=== PATIENT | female | born 1985 | race Caucasian/White ===

== ENCOUNTER → 2017-09-13 10:34 | Outpatient (CLI) | payer OTHER, SELFPAY ==
[2017-09-13 12:00] LABS: Internal QC Validated? YES +Cl - CLEAR BKGD; Pregnancy, Urine Negative Negative
== END ==
PROVIDERS: Family Provider Family Medicine; PCP Family Medicine; Visit Provider Physician Assistant
DX: L70.0 Acne vulgaris (principal); Z79.899 Other long term (current) drug therapy
CPT/HCPCS: 81025

== ENCOUNTER → 2017-10-19 08:47 | Outpatient (CLI) | payer OTHER, SELFPAY ==
[2017-10-19 10:20] LABS: Internal QC Validated? YES +Cl - CLEAR BKGD; Pregnancy, Urine Negative Negative
== END ==
PROVIDERS: Family Provider Family Medicine; PCP Family Medicine; Visit Provider Dermatology
DX: L70.0 Acne vulgaris (principal); Z79.899 Other long term (current) drug therapy
CPT/HCPCS: 81025

== ENCOUNTER → 2017-10-27 16:30 | Outpatient (CLI) | payer OTHER, SELFPAY ==
[2017-11-01 09:21] LABS: HPV Reflexed? NOT INDICATED
== END ==
PROVIDERS: Visit Provider Obstetrics & Gynecology
DX: Z01.419 Encounter for gynecological examination (general) (routine) without abnormal findings (principal)
CPT/HCPCS: 88175; G0145

== ENCOUNTER → 2017-12-09 09:57 | Outpatient (CLI) | payer OTHER, SELFPAY ==
[2017-12-09 12:02] LABS: Absolute Lymphocyte Count 2.61 X10^3/ul (0.83-4.51); Absolute Neutrophil Count 3.9 X10^3/uL (2.0-7.7); Basophil# 0.03 X10^3/uL; Basophil% 0.4 % (0-1); Eosinophils% 1.3 % (0-5); Hematocrit 43.1 % (37-47); Hemoglobin 14.7 g/dl (12.0-15.0); Lymphocyte # 2.61 X10^3/ul (4.0); Mean Corp Hgb Conc 34.1 g/gl (32-36); Mean Corpuscular Hgb 31.5 pg (27.0-32.0); Mean Corpuscular Volume 92.3 fL (81-99); Mean Platelet Vol. 10.3 fl (6.2-12.0); Monocyte# 0.84 X10^3/uL; Monocyte% 11.3 % (0-10); Neutrophil # 3.85 X10^3/uL (2.7-7.7); Neutrophil % 51.6 % (47-70); Platelet Count 346 K/mm3 (150-450); RBC Distribution Width CV 12.4 % (11.6-14.6); RBC Distribution Width SD 41.8 fl (35.1-43.9); Red Blood Count 4.67 M/mm3 (4.2-5.4); White Blood Count 7.5 K/mm3 (4.4-11.0)
[2017-12-09 12:07] LABS: POSITIVE COUNT NO; POSITIVE DIFFERENTIAL NO; POSITIVE MORPHOLOGY NO
[2017-12-09 12:34] LABS: AST(SGOT) 25 U/L (15-37); Alanine Aminotransfer ALT/SGPT 38 U/L (13-56); Albumin, Serum 4.1 g/dL (3.2-5.0); Alkaline Phosphatase 91 U/L (45-117); Bilirubin, Direct 0.08 mg/dL (0.00-0.30); Cholesterol 205 mg/dL (200); Globulin 3.9 g/dL (2.2-4.2); High Density Lipoprotein 48 mg/dL; Triglycerides 158 mg/dL; Very Low Density Lipoprotein 32 mg/dL (5-40)
[2017-12-09 12:46] LABS: Pregnancy, Serum, hCG Quali. NEGATIVE Negative (0-9 Nonpreg)
== END ==
PROVIDERS: Family Provider Family Medicine; PCP Family Medicine
DX: L70.0 Acne vulgaris (principal); Z79.899 Other long term (current) drug therapy
CPT/HCPCS: 36415; 80061; 80076; 84703; 85025

== ENCOUNTER → 2018-01-13 11:12 | Outpatient (CLI) | payer OTHER, SELFPAY ==
[2018-01-13 12:28] LABS: Internal QC Validated? YES +Cl - CLEAR BKGD; Pregnancy, Urine Negative Negative
[2018-01-13 13:02] LABS: Vitamin D,25 Hydroxy 18.1 ng/mL (29.95-100.01)
[2018-01-13 13:04] LABS: Thyroid Stim Hormone (TSH) 1.77 uIU/mL (0.358-3.74)
== END ==
PROVIDERS: Family Provider Family Medicine; PCP Family Medicine
DX: L70.0 Acne vulgaris (principal); E55.9 Vitamin D deficiency, unspecified; F41.1 Generalized anxiety disorder; Z79.899 Other long term (current) drug therapy
CPT/HCPCS: 36415; 81025; 82306; 84443

== ENCOUNTER → 2018-05-10 10:59 | Outpatient (CLI) | payer OTHER, SELFPAY ==
[2018-05-10 14:01] LABS: Chlamydia Trachomatis by PCR Negative (Negative); Neisserai gonorrhoeae by PCR Negative (Negative); Probe Check PASS; Sample Adequacy Control PASS; Specimen Processing Control PASS
== END ==
PROVIDERS: Family Provider Family Medicine; PCP Family Medicine; Visit Provider Obstetrics & Gynecology
DX: Z11.3 Encounter for screening for infections with a predominantly sexual mode of transmission (principal)
CPT/HCPCS: 87491; 87591

== ENCOUNTER → 2019-03-13 15:22 | Outpatient (CLI) | payer OTHER, SELFPAY ==
[2019-03-18 13:37] LABS: HPV Reflexed? NOT INDICATED
== END ==
PROVIDERS: Visit Provider Obstetrics & Gynecology
DX: Z12.4 Encounter for screening for malignant neoplasm of cervix (principal)
CPT/HCPCS: 88175; G0145

== ENCOUNTER → 2019-04-02 12:49 | Outpatient (CLI) | payer OTHER, SELFPAY | PROVIDERS: Referring Provider Nurse Practitioner Family; Visit Provider Nurse Practitioner Family | DX: R30.0 Dysuria (principal) | CPT/HCPCS: 87077; 87086; 87088 ==

== ENCOUNTER → 2019-04-25 10:03 | Outpatient (CLI) | payer OTHER, SELFPAY ==
[2019-04-25 10:35] LABS: Hematocrit 45.7 % (37-47); Hemoglobin 15.4 g/dL (12.0-15.0); Mean Corp Hgb Conc 33.7 g/dL (32-36); Mean Corpuscular Hgb 31.4 pg (27.0-32.0); Mean Corpuscular Volume 93.1 fL (81-99); Mean Platelet Vol. 9.6 fl (6.2-12.0); Platelet Count 360 K/mm3 (150-450); RBC Distribution Width CV 11.9 % (11.6-14.6); RBC Distribution Width SD 41.1 fl (35.1-43.9); Red Blood Count 4.91 M/mm3 (4.2-5.4); White Blood Count 7.4 K/mm3 (4.4-11.0)
[2019-04-25 10:37] LABS: Color, Urine Yellow (Yellow); Glucose, Dipstick Normal (Normal); Ketone-Dipstick 5 mg/dl (Negative); Leukocyte Esterase-Dipstick 25 /ul (Negative); Nitrite-Dipstick Negative (Negative); Occult Blood-Urine 25 /ul (Negative); Protein-Dipstick 15 mg/dl (Negative); Specific Gravity, Urine 1.015 (1.002-1.030); Urine Bilirubin Dipstick Negative (Negative); Urine Clarity Cloudy (Clear); Urine Urobilinogen Normal (Normal)
[2019-04-25 11:50] LABS: HIV - WCH Non-Reactive (Nonreactive); Hepatitis B Surface Antigen Non-Reactive (Nonreactive); Hepatitis C Antibody Non-Reactive (Nonreactive)
[2019-04-25 12:15] LABS: Chlamydia Trachomatis by PCR Negative (Negative); Neisserai gonorrhoeae by PCR Negative (Negative); Probe Check PASS; Sample Adequacy Control PASS; Specimen Processing Control PASS; Trichomonas Vag DNA by PCR Negative (Negative)
[2019-04-26 02:20] LABS: Rapid Plasmin Reagin (RPR) NONREACTIVE (NONREACTIVE)
== END ==
PROVIDERS: Visit Provider Advanced Practice Midwife
DX: Z11.3 Encounter for screening for infections with a predominantly sexual mode of transmission (principal); N39.0 Urinary tract infection, site not specified
CPT/HCPCS: 36415; 81002; 85027; 86592; 86703; 86803; 87086; 87088; 87340; 87491; 87591; 87661

== ENCOUNTER → 2019-06-21 12:32 | Outpatient (CLI) | payer OTHER, SELFPAY ==
--- NOTE | 2019-06-21 12:36 | RAD_ITS ---
STUDY: X-RAY - ABDOMEN/PELVIS REASON FOR EXAM: Female, 34 years old. irritable bowel syndrome TECHNIQUE: 3 AP supine and upright views of the abdomen and pelvis. COMPARISON: None. FINDINGS: Normal visualized lung bases. There is an unremarkable bowel gas pattern. There is no demonstrated free abdominal air. The colon is filled with stool along its entire length. An intrauterine device is seen. Normal soft tissue structures. Normal visualized osseous structures. RAD/Abd Inc Decub and/or Erect IMPRESSION: Stool-filled colon Electronically Signed: Davin Diehl MD at 19:08 EST , Service support ,
[2019-06-21 14:21] LABS: Cholesterol 199 mg/dL (200); High Density Lipoprotein 46 mg/dL; Triglycerides 99 mg/dL; Very Low Density Lipoprotein 20 mg/dL (5-40)
== END ==
PROVIDERS: Family Provider Family Medicine; PCP Family Medicine; Referring Provider Family Medicine; Visit Provider Family Medicine
DX: K58.9 Irritable bowel syndrome, unspecified (principal); E78.5 Hyperlipidemia, unspecified
CPT/HCPCS: 36415; 74019; 80061

== ENCOUNTER → 2020-01-09 11:09 | Outpatient (CLI) | payer OTHER, SELFPAY ==
[2020-01-09 13:58] LABS: HIV - WCH Non-Reactive (Nonreactive)
[2020-01-09 14:13] LABS: Probe Check PASS; Sample Adequacy Control PASS; Specimen Processing Control PASS; Trichomonas Vag DNA by PCR Negative (Negative)
[2020-01-09 14:26] LABS: Chlamydia Trachomatis by PCR Negative (Negative); Neisserai gonorrhoeae by PCR Negative (Negative); Probe Check PASS; Sample Adequacy Control PASS; Specimen Processing Control PASS
== END ==
PROVIDERS: PCP Family Medicine; Visit Provider Obstetrics & Gynecology
DX: Z11.3 Encounter for screening for infections with a predominantly sexual mode of transmission (principal)
CPT/HCPCS: 36415; 86703; 87086; 87088; 87491; 87591; 87661

== ENCOUNTER → 2020-03-18 11:38 | Outpatient (CLI) | payer BC, SELFPAY | PROVIDERS: PCP Family Medicine; Visit Provider Obstetrics & Gynecology | DX: N39.0 Urinary tract infection, site not specified (principal) | CPT/HCPCS: 87086; 87088 ==

== ENCOUNTER 2020-07-10 11:47 | Outpatient (RCR) | payer BC, SELFPAY | END 2020-07-10 23:59 | LOC: IMMUN 11:47 | PROVIDERS: PCP Family Medicine; Visit Provider Family Medicine | DX: Z23 Encounter for immunization (principal) | CPT/HCPCS: 0011A; 0012A; 91301 ==

== ENCOUNTER → 2020-08-18 16:03 | Outpatient (CLI) | payer BC, SELFPAY ==
[2020-08-19 09:43] LABS: HIV - WCH Non-Reactive (Nonreactive); Hepatitis B Surface Antigen Non-Reactive (Nonreactive); Hepatitis C Antibody Non-Reactive (Nonreactive); Syphilis Antibodies Non-reactive
== END ==
PROVIDERS: PCP Family Medicine; Visit Provider Obstetrics & Gynecology
DX: Z11.3 Encounter for screening for infections with a predominantly sexual mode of transmission (principal)
CPT/HCPCS: 36415; 86703; 86803; 87340

== ENCOUNTER → 2021-06-15 17:21 | Outpatient (CLI) | payer BC, SELFPAY | PROVIDERS: PCP Family Medicine; Visit Provider Family Medicine | DX: U07.1 COVID-19 (principal) | CPT/HCPCS: 87635; U0005; U0003 ==

== ENCOUNTER → 2021-06-18 15:29 | Outpatient (CLI) | payer BC, SELFPAY | PROVIDERS: PCP Family Medicine; Visit Provider Physician Assistant Medical | DX: U07.1 COVID-19 (principal) | CPT/HCPCS: 87635; U0003; U0005 ==

== ENCOUNTER 2021-07-22 13:46 | Outpatient (CLI) | payer BC, SELFPAY ==
[2021-07-29 13:14] LABS: HPV APTIMA, High Risk Negative (Negative)
== END 2021-07-22 23:59 | disposition short-term general hospital (02) ==
LOC: LABSPEC 13:49
PROVIDERS: PCP Family Medicine; Visit Provider Obstetrics & Gynecology
DX: Z12.4 Encounter for screening for malignant neoplasm of cervix (principal)
CPT/HCPCS: 87624; 88175; G0145

== ENCOUNTER 2021-09-17 12:10 | Outpatient (CLI) | payer BC, SELFPAY | END 2021-09-17 23:59 | disposition home or self-care (01) | PROVIDERS: PCP Family Medicine; Visit Provider Obstetrics & Gynecology | DX: R30.0 Dysuria (principal) | CPT/HCPCS: 87086 ==

== ENCOUNTER → 2021-12-30 | Outpatient (CLI) | payer BC, SELFPAY ==
[2021-12-30 15:23] LABS: Absolute Neutrophil Count 2.8 X10^3/uL (2.0-7.7); Basophil# 0.04 X10^3/uL; Basophil% 0.6 % (0-1); Eosinophil# 0.08 X10^3/uL; Eosinophils% 1.3 % (0-5); Hematocrit 42.3 % (37-47); Hemoglobin 14.1 g/dL (12.0-15.0); Lymphocyte % 43.5 % (19-41); Mean Corp Hgb Conc 33.3 g/dL (32-36); Mean Corpuscular Hgb 29.9 pg (27.0-32.0); Mean Corpuscular Volume 89.8 fL (81-99); Mean Platelet Vol. 9.9 fl (6.2-12.0); Monocyte% 9.7 % (0-10); NRBC Flagged by Analyzer 0 % (0-5); Neutrophil # 2.75 X10^3/uL (2.7-7.7); Neutrophil % 44.4 % (47-70); Platelet Count 395 K/mm3 (150-450); RBC Distribution Width CV 12.1 % (11.6-14.6); RBC Distribution Width SD 40.2 fl (35.1-43.9); Red Blood Count 4.71 M/mm3 (4.2-5.4); White Blood Count 6.2 K/mm3 (4.4-11.0)
[2021-12-30 15:59] LABS: ALB/GLOB Ratio 1.1 RATIO (0.9-2.4); AST(SGOT) 22 U/L (15-37); Alanine Aminotransfer ALT/SGPT 23 U/L (13-56); Alkaline Phosphatase 66 U/L (45-117); Anion Gap 5 (5-15); BUN 10 mg/dL (7-18); BUN/Creat Ratio 10.8 RATIO (10-20); Calcium,Total 9.1 mg/dL (8.5-10.1); Chloride 106 mmol/L (98-107); Cholesterol 232 mg/dL (200); Creatinine, Serum 0.92 mg/dL (0.55-1.02); EST Glomerular Filtration Rate 72 mL/min (>60); Est Glom Filt Rate - Afr Amer 88 mL/min (>60); Globulin 3.6 g/dL (2.2-4.2); Glucose 87 mg/dL (74-106); High Density Lipoprotein 49 mg/dL; Potassium 3.7 mmol/L (3.5-5.1); Protein, Total 7.6 g/dL (6.4-8.2); Sodium Level 137 mmol/L (136-145); Thyroid Stim Hormone (TSH) 1.79 uIU/mL (0.358-3.74); Triglycerides 113 mg/dL; Very Low Density Lipoprotein 23 mg/dL (5-40)
[2021-12-30 16:00] LABS: Vitamin D,25 Hydroxy 45.2 ng/mL
== END | disposition home or self-care (01) ==
PROVIDERS: PCP Family Medicine; Referring Provider Family Medicine; Visit Provider Family Medicine
DX: K58.9 Irritable bowel syndrome, unspecified (principal); F32.A Depression, unspecified; Z13.220 Encounter for screening for lipoid disorders
CPT/HCPCS: 36415; 80053; 80061; 82306; 84443; 85025

== ENCOUNTER → 2022-01-11 | Outpatient (CLI) | payer BC, SELFPAY ==
[2022-01-11 14:41] LABS: hCG Titer Quant., Serum 37 mIU/mL (1-3)
[2022-01-13 22:06] LABS: Chlamydia By Nucleic Acid AMP Negative (Negative)
[2022-01-14 12:47] LABS: Gonococcus By Nucleic Acid AMP Negative (Negative)
== END | disposition home or self-care (01) ==
LOC: WOBLAB 14:00
PROVIDERS: PCP Family Medicine; Visit Provider Obstetrics & Gynecology
DX: Z34.81 Encounter for supervision of other normal pregnancy, first trimester (principal)
CPT/HCPCS: 36415; 84702; 87491; 87591

== ENCOUNTER → 2022-01-14 | Outpatient (CLI) | payer BC, SELFPAY ==
[2022-01-14 11:43] LABS: hCG Titer Quant., Serum 12 mIU/mL (1-3)
== END | disposition home or self-care (01) ==
LOC: WOBLAB 08:41
PROVIDERS: PCP Family Medicine; Visit Provider Obstetrics & Gynecology
DX: N91.2 Amenorrhea, unspecified (principal)
CPT/HCPCS: 36415; 84702

== ENCOUNTER → 2022-05-10 | Outpatient (CLI) | payer BC, SELFPAY ==
[2022-05-10 15:56] LABS: Absolute Neutrophil Count 6.9 X10^3/uL (2.0-7.7); Basophil# 0.06 X10^3/uL; Basophil% 0.5 % (0-1); Eosinophil# 0.13 X10^3/uL; Eosinophils% 1.1 % (0-5); Hemoglobin 13.3 g/dL (12.0-15.0); Lymphocyte % 29.4 % (19-41); Mean Corp Hgb Conc 33.3 g/dL (32-36); Mean Corpuscular Hgb 30.4 pg (27.0-32.0); Mean Corpuscular Volume 91.5 fL (81-99); Mean Platelet Vol. 9.9 fl (6.2-12.0); Monocyte# 1.05 X10^3/uL; Monocyte% 9.1 % (0-10); NRBC Flagged by Analyzer 0 % (0-5); Neutrophil # 6.87 X10^3/uL (2.7-7.7); Neutrophil % 59.4 % (47-70); Platelet Count 372 K/mm3 (150-450); RBC Distribution Width CV 12.2 % (11.6-14.6); RBC Distribution Width SD 40.6 fl (35.1-43.9); Red Blood Count 4.37 M/mm3 (4.2-5.4); White Blood Count 11.6 K/mm3 (4.4-11.0)
[2022-05-10 17:12] LABS: HIV - WCH Non-Reactive (Nonreactive); Hepatitis B Surface Antigen Non-Reactive (Nonreactive); Hepatitis C Antibody Non-Reactive (Nonreactive); Rubella IgG Reactive (Nonreactive); Syphilis Antibodies Non-reactive
[2022-05-12 14:58] LABS: V-Zoster IgG (Immunity) 1599 index (Immune >165)
[2022-05-13 00:07] LABS: Chlamydia By Nucleic Acid AMP Negative (Negative)
[2022-05-13 07:38] LABS: Gonococcus By Nucleic Acid AMP Negative (Negative)
== END | disposition home or self-care (01) ==
LOC: WOBLAB 15:22
PROVIDERS: PCP Family Medicine; Visit Provider Obstetrics & Gynecology
DX: Z34.81 Encounter for supervision of other normal pregnancy, first trimester (principal); Z11.3 Encounter for screening for infections with a predominantly sexual mode of transmission
CPT/HCPCS: 36415; 85025; 86703; 86762; 86780; 86787; 86803; 87086; 87340; 87491; 87591

== ENCOUNTER → 2022-06-09 | Outpatient (CLI) | payer BC, SELFPAY ==
[2022-06-09 17:30] LABS: Glucose Challenge Gest 1H 50g 99 mg/dL (70-140)
== END | disposition home or self-care (01) ==
PROVIDERS: PCP Family Medicine; Visit Provider Obstetrics & Gynecology
DX: Z34.82 Encounter for supervision of other normal pregnancy, second trimester (principal)
CPT/HCPCS: 36415; 82950

== ENCOUNTER → 2022-07-30 | Outpatient (CLI) | payer BC, SELFPAY ==
--- NOTE | 2022-07-30 15:18 | US_ITS ---
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 FINDINGS: There is a single intrauterine fetus. The fetus is in a cephalic and then breech presentation. There is demonstrated cardiac activity with a heart rate of 143 bpm. There is a normal amniotic fluid volume. The largest amniotic fluid pocket measures 6.9 cm. The placenta is posterior and not low-lying. There are Grade 0 placental changes. The cervix measures 4.9 cm in length. The adnexal regions are not visualized. BPD: 4.4 cm = 19 weeks, 2 day(s) HC: 16.8 cm = 19 weeks, 3 day(s) AC: 14.7 cm = 20 weeks, 0 day(s) FL: 3.2cm = 19 weeks, 5 day(s) EGA by ultrasound: 19 weeks 3 day(s) DOUGLAS by ultrasound: 12/21/2022 Estimated weight: 316 grams Weight percentile: 23% ANATOMY: Gender: Female Cranium: Normal lateral ventricles. Normal choroid plexus. Normal cerebellum. Normal cisterna magna. Normal face, nose and lips. Chest: Normal 4-chamber heart. Abdomen/Pelvis: Normal diaphragm. Normal stomach. Normal abdominal wall. Normal cord insertion. Normal 3 vessel cord. Normal kidneys. Normal bladder. Spine: Normal cervical spine. Normal thoracic spine. Normal lumbar spine. Normal sacrum. Extremities: Normal bilateral upper extremities. Normal bilateral lower extremities. US/OB Anatomy Scan IMPRESSION: Living intrauterine with estimated gestational age of 19 weeks and 3 days. No obvious anomalies. Electronically Signed: Davis Humphrey MD at 19:52 EST ,
== END | disposition home or self-care (01) ==
LOC: US 15:16
PROVIDERS: PCP Family Medicine; Referring Provider Student in an Organized Health Care Education/Training Program; Visit Provider Student in an Organized Health Care Education/Training Program
DX: Z34.82 Encounter for supervision of other normal pregnancy, second trimester (principal)
CPT/HCPCS: 76805

== ENCOUNTER → 2022-10-01 | Outpatient (CLI) | payer BC, SELFPAY ==
[2022-10-01 16:35] LABS: Hematocrit 36.5 % (37-47); Hemoglobin 12.6 g/dL (12.0-15.0); Mean Corp Hgb Conc 34.5 g/dL (32-36); Mean Corpuscular Hgb 31.6 pg (27.0-32.0); Mean Corpuscular Volume 91.5 fL (81-99); Mean Platelet Vol. 10.1 fl (6.2-12.0); Platelet Count 291 K/mm3 (150-450); RBC Distribution Width CV 13.3 % (11.6-14.6); RBC Distribution Width SD 43.9 fl (35.1-43.9); Red Blood Count 3.99 M/mm3 (4.2-5.4); White Blood Count 9.8 K/mm3 (4.4-11.0)
[2022-10-01 16:56] LABS: Glucose Challenge Gest 1H 50g 113 mg/dL (70-140)
[2022-10-01 17:22] LABS: Syphilis Antibodies Non-reactive
== END | disposition home or self-care (01) ==
LOC: WOBLAB 16:19
PROVIDERS: PCP Family Medicine; Visit Provider Obstetrics & Gynecology
DX: Z34.83 Encounter for supervision of other normal pregnancy, third trimester (principal)
CPT/HCPCS: 36415; 82950; 85027; 86780

== ENCOUNTER → 2022-11-18 | Outpatient (CLI) | payer BC, SELFPAY ==
[2022-11-18 18:20] LABS: Absolute Lymphocyte Count 2.71 X10^3/uL (0.83-4.51); Absolute Neutrophil Count 6.4 X10^3/uL (2.0-7.7); Basophil# 0.04 X10^3/uL; Basophil% 0.4 % (0-1); Eosinophil# 0.06 X10^3/uL; Eosinophils% 0.6 % (0-5); Hematocrit 39.7 % (37-47); Lymphocyte # 2.71 X10^3/ul (0.83-4.51); Lymphocyte % 26.8 % (19-41); Mean Corp Hgb Conc 32.7 g/dL (32-36); Mean Corpuscular Hgb 30.5 pg (27.0-32.0); Mean Corpuscular Volume 93.2 fL (81-99); Mean Platelet Vol. 10.8 fl (6.2-12.0); Monocyte# 0.82 X10^3/uL; Monocyte% 8.1 % (0-10); NRBC Flagged by Analyzer 0 % (0-5); Neutrophil # 6.38 X10^3/uL (2.7-7.7); Neutrophil % 63.2 % (47-70); Platelet Count 343 K/mm3 (150-450); RBC Distribution Width CV 13.2 % (11.6-14.6); RBC Distribution Width SD 44.7 fl (35.1-43.9); Red Blood Count 4.26 M/mm3 (4.2-5.4); White Blood Count 10.1 K/mm3 (4.4-11.0)
[2022-11-18 19:05] LABS: Protein, Urine (Random) 12.6 mg/dL (<11.9); Protein:Creat Ratio 205 mg/g CRE (0-200)
[2022-11-18 19:25] LABS: ALB/GLOB Ratio 0.6 RATIO (0.9-2.4); AST(SGOT) 15 U/L (15-37); Alanine Aminotransfer ALT/SGPT 15 U/L (13-56); Albumin, Serum 2.6 g/dL (3.2-5.0); Alkaline Phosphatase 113 U/L (45-117); Anion Gap 7 (5-15); BUN 7 mg/dL (7-18); BUN/Creat Ratio 11.1 RATIO (10-20); Calcium,Total 9.5 mg/dL (8.5-10.1); Chloride 104 mmol/L (98-107); Creatinine, Serum 0.63 mg/dL (0.55-1.02); EST Glomerular Filtration Rate 111 mL/min (>60); Est Glom Filt Rate - Afr Amer 135 mL/min (>60); Globulin 4.3 g/dL (2.2-4.2); Glucose 77 mg/dL (74-106); LDH 173 U/L (84-246); Potassium 3.8 mmol/L (3.5-5.1); Protein, Total 6.9 g/dL (6.4-8.2); Sodium Level 137 mmol/L (136-145)
== END | disposition home or self-care (01) ==
LOC: WOBLAB 16:49
PROVIDERS: PCP Family Medicine; Visit Provider Obstetrics & Gynecology
DX: Z34.83 Encounter for supervision of other normal pregnancy, third trimester (principal); Z36.85 Encounter for antenatal screening for Streptococcus B
CPT/HCPCS: 36415; 80053; 82570; 83615; 84156; 85025; 87081; 87086

== ENCOUNTER 2022-12-14 20:30 | Inpatient (IN) | payer BC, SELFPAY ==
[2022-12-14] VITALS (40 sets, daily range): BP systolic 77–143; BP diastolic 45–88; PULSE 65–148; TEMP 36.4–36.6; O2SAT 97–100; BMI 33.7
[2022-12-14 20:27] LABS: ROM Internal Control Test YES-OK TO RESULT pt. (Internal QC); ROM Patient Test POSITIVE (Negative); Record Kit Lot#, ROM+ K1374
[2022-12-14] MEDS: Lactated Ringers 1,000 ML 50 ML IV (21:15)
[2022-12-14 21:42] LABS: Absolute Lymphocyte Count 3.06 X10^3/uL (0.83-4.51); Absolute Neutrophil Count 6.3 X10^3/uL (2.0-7.7); Basophil# 0.05 X10^3/uL; Basophil% 0.5 % (0-1); Eosinophil# 0.07 X10^3/uL; Eosinophils% 0.7 % (0-5); Hematocrit 41.6 % (37-47); Lymphocyte # 3.06 X10^3/ul (0.83-4.51); Lymphocyte % 29.5 % (19-41); Mean Corp Hgb Conc 33.7 g/dL (32-36); Mean Corpuscular Hgb 30.6 pg (27.0-32.0); Mean Platelet Vol. 10.8 fl (6.2-12.0); Monocyte# 0.85 X10^3/uL; Monocyte% 8.2 % (0-10); NRBC Flagged by Analyzer 0 % (0-5); Neutrophil # 6.26 X10^3/uL (2.7-7.7); Neutrophil % 60.1 % (47-70); Platelet Count 302 K/mm3 (150-450); RBC Distribution Width CV 13.5 % (11.6-14.6); RBC Distribution Width SD 44.3 fl (35.1-43.9); Red Blood Count 4.57 M/mm3 (4.2-5.4); White Blood Count 10.4 K/mm3 (4.4-11.0)
[2022-12-14] MEDS: LACTATED RINGERS 500 ML 999 ML IV ×2 (22:03→22:52)
[2022-12-14 22:20] LABS: Syphilis Antibodies Non-reactive
[2022-12-14] MEDS: fentaNYL-bupivacaine (epidural) 100 ML BAG EPIDURAL (22:46)
[2022-12-14] MEDS: ePHEDrine Sulfate 50 MG/ML Ampul 10 MG IV (22:56)
[2022-12-14 23:57] LABS: Amphetamine Urine VISTA NEGATIVE (<1000 ng/mL); Barbiturate Urine VISTA NEGATIVE (< 200 ng/mL); Benzodiazepine Urine VISTA NEGATIVE (< 200 ng/mL); Cocaine Urine VISTA NEGATIVE (< 300 ng/mL); Ecstacy Urine VISTA NEGATIVE (< 500 ng/mL); Methadone Urine VISTA NEGATIVE (< 300 ng/mL); PCP Urine VISTA NEGATIVE (< 25 ng/mL); THC Urine VISTA NEGATIVE (< 50 ng/mL); Vista UDS pH Range 6
[2022-12-15] VITALS (77 sets, daily range): BP systolic 103–161; BP diastolic 57–130; PULSE 73–137; RESP 16–18; TEMP 36.1–36.4; O2SAT 86–100
[2022-12-15] MEDS: LACTATED RINGERS 500 ML 999 ML IV (00:45)
[2022-12-15] MEDS: Cefazolin 2 GM in 0.9% Normal Saline 100 ML IV ×3 (01:08→17:39)
--- NOTE | 2022-12-15 01:51 | PCM.HP.BLA ---
History and Physical Date of Admission: 12/14/22 HPI: 37-year-old admitted at 39/6w, DOUGLAS 12/15/2022 by LMP, admitted for rupture of membranes at 1700 on December 14. Denies vaginal bleeding. Denied regular contractions. Reported movement. Denies headache or vision changes, chest pain or shortness of breath, nausea or vomiting, diarrhea constipation, fevers or chills. complicated by: Factor V heterozygous, advanced maternal age, depression and anxiety. 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 Anxiety and depression 2. Factor V heterozygous 3. class I obesity 4. IBS Surgical History: 1. Tonsillectomy 2. WTE Medications: 1. PNV 2. Vitamin D 3. Claritin 4. Lamictal 5. Celexa 6. ASA 81 mg Allergies: latex Social: former tobacco use, denies alcohol or drugs ROS: neg otherwise stated above Physical exam: vital stable General: Comfortable HEENT: Normal cephalic/atraumatic Cardiorespiratory: No increased effort Abdomen: Soft, nontender, gravid Extremities minimal edema Neurologic: No focal deficits Musculoskeletal: Moves all extremities equally CE on admission 1.5 cm, ROM pos FHR:125/mod louis/+accel/no decel [place]: quiet On admission Assessment/Plan: 37-year-old admitted at 39/6w, DOUGLAS 12/15/2022 by LMP, admitted for rupture of membranes. complicated by: Factor V heterozygous, advanced maternal age, depression and anxiety, class I obesity. ?Admit to labor and delivery. ? GBS negative ? Plan to recheck cervix in 2 hours, if no cervical change would start Pitocin ? Factor V heterozygous: Lovenox 40 mg daily for 6 weeks on delivery ? Advanced maternal age ? Class I obesity ? Anxiety and depression: Continue Celexa and lamictal
--- NOTE | 2022-12-15 01:53 | OP.PCM_ITS ---
Maternal Data Information Final DOUGLAS: 12/15/22 Details Operative Information Date of Procedure: 12/15/22 Pre-Operative Diagnosis: Nonreassuring heart tones Post-Operative Diagnosis: Nonreassuring heart tones Indications Narrative: This is a 37-year-old G3, P1 at 40/0 weeks, admitted for rupture of membranes. Patient had a prolonged heart rate deceleration of 18 minutes with a libra of 60s, with intermittent recovery. Provider was called at 12:52 AM and arrived at 12:59 AM. Had ordered terbutaline to be given x1, patient did not receive. Patient received IVF bolus, oxygen, position changes in attempt to resolve deceleration. Patient's cervix was reexamined in the OR, noting to again be 3 cm dilated. Discussed findings and heart rate tracing with the patient and her . Patient was verbally consented for section. All risk, benefits, alternative discussed patient. Risk of but are not limited to: Risk of bleeding twin transfusion, infection, injury to surrounding tissue including bowel/bladder potentially requiring prolonged Wang catheter use, VTE, ICU admission. Patient aware and verbally consented. Classification: LILIYA Procedure Type: low transverse Type of Anesthesia: Epidural Estimated Blood Loss: 700cc Fluids Replaced: 1000cc Findings Description of Procedure: Procedure: Patient was taken to the operating room and epidural was dosed. Decision for emergent section was made, patient was verbally consented as above. Due to the emergent nature of the surgery, RN scrubbed as pharmacy innovation assistant pending BILL ADJUSTER arrival. Pfannenstiel skin incision was made with scalpel and carried down through subcutaneous tissue. Fascia nicked on either side of midline and extended bluntly. Rectus muscle at midline bluntly and peritoneum entered bluntly. Bladder blade placed. Low transverse uterine incision made with scalpel and extended bluntly. Hand placed into the uterine cavity and head elevated to the level of the hysterotomy. Bladder blade removed. With the assistance of gentle fundal pressure head delivered followed by body. No nuchal cord. Cord clamped and cut. Baby to nursing. Spontaneous delivery of placenta. Uterus exteriorized and cleared of all clots. Small uterine extension noted inferiorly, reapproximated with running stitch. Imbricating [id number] suture was placed for hemostasis along the extension. Hysterotomy closed with running stitch followed by second vertical imbricating stitch. Uterus replaced. Hemostasis confirmed along the hysterotomy closure. Peritoneum closed in running stitch. Rectus muscles reapproximated with horizontal mattress suture. Fascia closed with running stitch. Subcutaneous tissue irrigated and reapproximated with suture. Skin closed with a running subcuticular stitch. At the end the procedure all needle, lap, sponge counts were correct. UOP: 200cc clear yellow urine We will give Ancef for 24 hours prophylactically. Patient has factor V Leiden heterozygous, will go home on Lovenox once daily for 6 weeks A Gender: Female (1 minute): 7 (5 minute): 8 Complications Complications: None
[2022-12-15] MEDS: Oxytocin 15 Units/NS 250ml 15 UNITS/250 ML IV.SOLN 83 UNITS IV (01:59)
[2022-12-15] MEDS: Ketorolac 30 MG/ML Syringe IV ×4 (02:22→20:10)
[2022-12-15] MEDS: Acetaminophen 500 MG Tablet 1000 MG PO ×4 (04:22→23:18)
[2022-12-15] MEDS: Lactated Ringers 1,000 ML 100 ML IV ×2 (05:00→08:37)
[2022-12-15] MEDS: Senna/Docusate Sodium 1 Tablet PO (09:40)
[2022-12-15] MEDS: Nalbuphine 10 MG/ML Ampul 5 MG IV ×2 (09:41→10:00)
[2022-12-15] MEDS: Citalopram 20 MG Tablet PO (12:13)
[2022-12-15] MEDS: Loratadine 10 MG Tablet PO (12:13)
[2022-12-15] MEDS: 0.9% Saline Lock 10 ML Syringe IV ×4 (12:41→20:11)
[2022-12-15] MEDS: Enoxaparin 40 MG/0.4 ML Syringe SC (13:43)
[2022-12-15] MEDS: lamoTRIgine 150 MG Tablet 75 MG PO (13:43)
--- NOTE | 2022-12-15 19:30 | CASEMGMT ---
Social Work Assessment Labor and Delivery Unit [address] Phone number: [phone] Date of Referral: 12/15/2022 Referred By: Black Date of Intervention: 12/15/2022 Time of Intervention: 6:15 Reason for Referral:? Hx of depression/anxiety History obtained from: medical records and mother of baby Household composition: LAUREEN, MANUELA and 15-year-old sister Patient's parent/guardian status: LAUREEN and Asaf ROY, have been together approx. 8 years. This is MANUELA?s first biological child. 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 Medical History: LAUREEN has one 15-year-old daughter and has had one miscarriage. LAUREEN denies any major medical concerns besides advanced maternal age and received adequate care. Baby girl, Maya, weighed 5lbs and 12 oz with 7/8 apgars. MOB denies medical concerns for baby. Educational Status: LAUREEN and MANUELA deny literacy concerns. Financial Status: Denies concerns Infant Supplies: ?Reports all necessary items Childcare/Caregiver(s):? MOB reports they are still considering their options for family to help with childcare. Transportation: Denies concerns Programs/Agencies Involved: ??None Children Services/Legal Issues:??? Denies Behavioral Health Issues: ??Mental Health History: LAUREEN reports a history of depression and resuming medications while due to difficulty with the of her dog. LAUREEN is taking Lamictal and celexa. She is unsure whether she experienced PPD with her first child. LAUREEN reports family history of bipolar disorder. Substance Use History:? Denies substance abuse Drug Screens: Negative? Family/Social Stressors: LAUREEN denies any major stressors or social concerns Support Systems: LAUREEN reports good support system with family, especially her dad that is a psychologist, Depression: Provided education and resources, parents recptive Shaken Baby: Provided education, parents receptive Safe Sleeping: Provided education, parents receptive ASSESSMENT:? No concerns throughout assessment. Parents were knowledgeable and responded appropriately. PLAN:? No other services requested or indicated. Angie Fernandez PRINCIPAL SOFTWARE ARCHITECT, [employer] [place]
[2022-12-16] VITALS (7 sets, daily range): BP systolic 111–143; BP diastolic 68–81; PULSE 67–87; RESP 16–20; TEMP 35.8–36.6; O2SAT 96–98
[2022-12-16] MEDS: 0.9% Saline Lock 10 ML Syringe IV ×2 (01:50→02:44)
[2022-12-16 01:55] LABS: Hematocrit 35.3 % (37-47); Hemoglobin 11.5 g/dL (12.0-15.0); Mean Corp Hgb Conc 32.6 g/dL (32-36); Mean Corpuscular Hgb 30.4 pg (27.0-32.0); Mean Corpuscular Volume 93.4 fL (81-99); Mean Platelet Vol. 10.7 fl (6.2-12.0); Platelet Count 220 K/mm3 (150-450); RBC Distribution Width CV 13.8 % (11.6-14.6); RBC Distribution Width SD 46.8 fl (35.1-43.9); Red Blood Count 3.78 M/mm3 (4.2-5.4)
[2022-12-16] MEDS: Cefazolin 2 GM in 0.9% Normal Saline 100 ML IV (02:00)
[2022-12-16] MEDS: Ibuprofen 600 MG Tablet PO ×4 (02:01→19:46)
[2022-12-16] MEDS: DiphenhydrAMINE 25 MG Capsule PO (02:01)
[2022-12-16] MEDS: Acetaminophen 500 MG Tablet 1000 MG PO ×3 (05:39→18:31)
--- NOTE | 2022-12-16 07:30 | NURSING ---
report given to Shannan Rodriguez RN and Marco Antonio Smith RN who are assuming care of pt at this time
--- NOTE | 2022-12-16 07:55 | PCM.PN.OB ---
Subjective Subjective Patient feeling well. Lochia minimal. Pain controlled. Breast-feeding. Objective Data Objective Data Vital Signs: Vital Signs Temp Pulse Resp BP Pulse Ox O2 Del Method 97.5 F L 82 20 H 126/81 H 96 Room Air 12/16/22 02:12 12/16/22 02:12 12/16/22 02:12 12/16/22 02:12 12/16/22 02:12 12/16/22 02:12 Oxygen Delivery Method Room Air Weight: 91.8 kg Body Mass Index (BMI) 33.7 Intake & Output: Intake and Output for Last 24 Hours 12/14/22 12/15/22 12/16/22 23:59 23:59 23:59 Intake Total 1100 / 1100 2935.00 / 2935.00 110 / 110 Output Total 2500 / 2700 850 / 850 Balance 1100 / 1100 435.00 / 235.00 -740 / -740 Lab / Micro Data Attestation: I reviewed the patient's lab results. 12/16/22 01:50 Labs: Laboratory Results - last 24 hr 12/16/22 01:50: WBC 10.0, RBC 3.78 L, Hgb 11.5 L, Hct 35.3 L, MCV 93.4, MCH 30.4, MCHC 32.6, RDW Std Deviation 46.8 H, RDW Coeff of Harry 13.8, Plt Count 220, MPV 10.7 Physical Exam Const alert, oriented x3 and no apparent distress HEENT normocephalic Head and Scalp: atraumatic Neck full ROM Resp normal respiratory effort Cardio regular rate GI normal to inspection, nondistended, normoactive bowel sounds GI Narrative: Uterus 2 cm below umbilicus, dressing clean and dry Back/Spine normal ROM Extremity normal to inspection Extremity Narrative: Minimal pedal edema Neuro no focal motor deficits and no sensory deficits noted Psych mental status grossly normal and affect normal Assessment & Plan (1) Other acute postprocedural pain: PLAN: Postop day 1 status post primary section for prolonged heart rate deceleration. Pain is controlled. Breast-feeding, would benefit from postdischarge appointment. Acute blood loss anemia secondary to surgery, iron supplement on home-going. Factor V Leiden heterozygous: Plan for 6 weeks of prophylactic dosing Lovenox. To have instructions today prior to discharge. Desires discharge today. Postop appointment in 2 weeks. Reviewed wound care and postoperative expectations with patient and her partner. (2) Delivery by section: (3) Acute blood loss as cause of postoperative anemia:
--- NOTE | 2022-12-16 07:57 | DCINST_ITS ---
Discharge Instructions Diet Discharge Diet: No restrictions Activity Discharge Activity: Return to Normal Activity and May Shower May resume sexual activity in: 4-6 weeks Weight Bearing Status: Weight bearing as tolerated Lifting Restrictions: No greater than 25 pounds Dressing / Incision Call your doctor if your incision/area has: Continuous Slow Oozing, Increased Redness and Swelling at the incision site Call your doctor if you observe: Fever of 101 or Higher, Change in Color, Inability to urinate, Using more than 1 pad per hour, Shortness of breath, Dizziness, Swelling in the ankles, Chest pain and Calf discomfort Remove Dressing in: 1 week Cleanse incision/area with: Soap & Water and Keep Dressing Clean & Dry Follow Up Care Please Follow Up With: Tree Cleaning MD When: 2-week post operative and 6-week visit Test Results: Test results from this visit will be discussed in further detail at your follow- up appointment, if applicable. Discharge Plan Admission Admit Date/Time: 12/14/22 20:30 Primary Reason for Your Visit: section Attending Provider: Ami Cleaning Primary Care Provider: Germain Urrutia Discharge Orders/Prescriptions Prescriptions: New enoxaparin 40 mg/0.4 mL Syringe 40 mg subcut DAILY 42 Days Qty: 16.8 0RF oxycodone 5 mg Tablet 5 mg PO Q6H PRN (Reason: pain) 4 Days Qty: 14 0RF Continued lamotrigine 100 MG tablet 100 mg PO BID loratadine [Allergy Relief (loratadine)] 10 MG tablet 10 mg PO DAILY citalopram [Celexa] 20 mg Tablet 20 mg PO DAILY [id number] 1 mg Tablet 1 tab PO DAILY Baby Aspirin 81 mg PO.IVFORM DAILY Vitamin D3 1,000 iu PO.IVFORM DAILY Referrals / Follow Up: Germain Urrutia MD [Primary Care Provider] - Disposition Disposition (needs filled in before D/C Order can be placed): Home, Self Care
[2022-12-16] MEDS: Senna/Docusate Sodium 1 Tablet PO (10:00)
[2022-12-16] MEDS: Citalopram 20 MG Tablet PO (10:31)
[2022-12-16] MEDS: Loratadine 10 MG Tablet PO (10:31)
[2022-12-16] MEDS: lamoTRIgine 150 MG Tablet 75 MG PO (10:34)
[2022-12-16] MEDS: Enoxaparin 40 MG/0.4 ML Syringe SC (10:34)
[2022-12-17] MEDS: Acetaminophen 500 MG Tablet 1000 MG PO ×3 (00:49→12:14)
[2022-12-17 01:28] VITALS: O2SAT 82
[2022-12-17 01:29] VITALS: BP 127/76; PULSE 65
[2022-12-17 01:37] VITALS: BP 127/76; PULSE 62; RESP 16; TEMP 36.6; O2SAT 96
[2022-12-17] MEDS: Ibuprofen 600 MG Tablet PO ×2 (02:11→08:34)
[2022-12-17 08:31] VITALS: BP 137/72; PULSE 60
[2022-12-17 08:37] VITALS: BP 137/72; PULSE 64; RESP 15; TEMP 30.8; O2SAT 99
[2022-12-17] MEDS: Enoxaparin 40 MG/0.4 ML Syringe SC (11:12)
[2022-12-17] MEDS: Loratadine 10 MG Tablet PO (11:13)
[2022-12-17] MEDS: lamoTRIgine 150 MG Tablet 75 MG PO (11:13)
[2022-12-17] MEDS: Senna/Docusate Sodium 1 Tablet PO (11:14)
[2022-12-17] MEDS: Citalopram 20 MG Tablet PO (11:14)
--- NOTE | 2022-12-23 07:32 | DS.PCM_ITS ---
Providers Date of Admission: 12/14/22 Primary Care Physician: Dr. Germain Urrutia MD Reason For Visit: C SECTION Diagnosis Discharge Diagnosis (1) Other acute postprocedural pain: Status: Acute Code(s): G89.18 - Other acute postprocedural pain Plan: Postop day 1 status post primary section for prolonged heart rate deceleration. Pain is controlled. Breast-feeding, would benefit from postd ischarge appointment. Acute blood loss anemia secondary to surgery, iron supplement on home-going. Factor V Leiden heterozygous: Plan for 6 weeks of prophylactic dosing Lovenox. To have instructions today prior to discharge. Desires discharge today. Postop appointment in 2 weeks. Reviewed wound care and postoperative expectations with patient and her partner. (2) Delivery by section: Status: Acute (3) Acute blood loss as cause of postoperative anemia: Status: Acute Code(s): D62 - Acute posthemorrhagic anemia Medications at Discharge Home Medications lamotrigine 100 mg tablet 100 mg PO BID anx/dep 03/18/15 loratadine 10 mg tablet (Allergy Relief (loratadine)) 10 mg PO DAILY allergies 03/18/15 Baby Aspirin 81 mg PO.IVFORM DAILY AMA 12/14/22 Vitamin D3 1,000 iu PO.IVFORM DAILY 12/14/22 citalopram 20 mg tablet (Celexa) 20 mg PO DAILY anx/dep 12/14/22 [id number] 1 mg tablet 1 tab PO DAILY 12/14/22 enoxaparin 40 mg/0.4 mL subcutaneous syringe 40 mg (0.4 mL) subcut DAILY 6 weeks #16.8 mL 12/15/22 oxycodone 5 mg tablet 5 mg PO Q6H PRN pain 4 days #14 tabs 12/15/22 Hospital Course Summary of Care Provided Hospital Course: Admitted for rupture membranes. Had emergent section for heart rate deceleration. Discharged home postop day 1. Weight / BMI Weight Weight: 91.8 kg Body Mass Index (BMI) 33.7 ABG / Lab / Microbiology Data 12/16/22 01:50 D/C Instructions Discharge Diet: No restrictions May resume sexual activity in: 4-6 weeks Weight Bearing Status: Weight bearing as tolerated Call your doctor if your incision/area has: Continuous Slow Oozing, Increased Redness and Swelling at the incision site Call your doctor if you observe: Fever of 101 or Higher, Change in Color, Inability to urinate, Using more than 1 pad per hour, Shortness of breath, Dizziness, Swelling in the ankles, Chest pain and Calf discomfort Cleanse incision/area with: Soap & Water and Keep Dressing Clean & Dry Please Follow Up With: Tree Cleaning MD When: 2-week post operative and 6-week visit Meaningful Use Info Meaningful Use Diagnoses (Choose all that apply): None applicable Discharge Plan Admission Admit Date/Time: 12/14/22 20:30 Primary Reason for Your Visit: section Attending Provider: Ami Cleaning Primary Care Provider: Germain Urrutia Instructions Patient Instructions: Lovenox Prefilled Syringe 40 mg/0.4 mL, After a Discharge Orders/Prescriptions Prescriptions: New enoxaparin 40 mg/0.4 mL Syringe 40 mg subcut DAILY 42 Days Qty: 16.8 0RF oxycodone 5 mg Tablet 5 mg PO Q6H PRN (Reason: pain) 4 Days Qty: 14 0RF Continued lamotrigine 100 MG tablet 100 mg PO BID loratadine [Allergy Relief (loratadine)] 10 MG tablet 10 mg PO DAILY citalopram [Celexa] 20 mg Tablet 20 mg PO DAILY [id number] 1 mg Tablet 1 tab PO DAILY Baby Aspirin 81 mg PO.IVFORM DAILY Vitamin D3 1,000 iu PO.IVFORM DAILY Referrals / Follow Up: Germain Urrutia MD [Primary Care Provider] - Disposition Disposition (needs filled in before D/C Order can be placed): Home, Self Care
== END 2022-12-17 12:53 | disposition home or self-care (01) | DRG 786 ==
LOC: WPOUT 20:32 → WP 20:32
PROVIDERS: Admitting Provider Student in an Organized Health Care Education/Training Program; PCP Family Medicine; Referring Provider Student in an Organized Health Care Education/Training Program; Visit Provider Student in an Organized Health Care Education/Training Program
DX: O76 Abnormality in fetal heart rate and rhythm complicating labor and delivery (principal); O99.42 Diseases of the circulatory system complicating childbirth; D62 Acute posthemorrhagic anemia; O99.12 Other diseases of the blood and blood-forming organs and certain disorders involving the immune mechanism complicating childbirth; D68.51 Activated protein C resistance; O99.214 Obesity complicating childbirth; F32.A Depression, unspecified; F41.9 Anxiety disorder, unspecified; I34.1 Nonrheumatic mitral (valve) prolapse; O90.81 Anemia of the puerperium; O42.92 Full-term premature rupture of membranes, unspecified as to length of time between rupture and onset of labor; O99.344 Other mental disorders complicating childbirth; Z37.0 Single live birth; Z3A.40 40 weeks gestation of pregnancy; Z79.82 Long term (current) use of aspirin; Z79.899 Other long term (current) drug therapy; Z87.891 Personal history of nicotine dependence
CPT/HCPCS: 59025; 59050; 80307; 84112; 85025; 85027; 86780; 86850; 86900; 86901; 99221; J7120; A4216; G0378; J2405

== ENCOUNTER → 2022-12-29 | Outpatient (CLI) | payer BC, SELFPAY | END | disposition home or self-care (01) | LOC: LABSPEC 17:00 | PROVIDERS: PCP Family Medicine; Visit Provider Student in an Organized Health Care Education/Training Program | DX: N76.0 Acute vaginitis (principal) | CPT/HCPCS: 87086; 87088 ==

== ENCOUNTER → 2023-09-19 | Outpatient (CLI) | payer BC, SELFPAY ==
[2023-09-19 12:25] LABS: Erythrocyte Sedimentation Rate 20 mm/hr (0-30)
[2023-09-19 12:28] LABS: Absolute Lymphocyte Count 2.66 X10^3/uL (0.83-4.51); Absolute Neutrophil Count 12.6 X10^3/uL (2.0-7.7); Basophil# 0.07 X10^3/uL; Basophil% 0.4 % (0-1); Eosinophil# 0.08 X10^3/uL; Eosinophils% 0.5 % (0-5); Hematocrit 42.9 % (37-47); Hemoglobin 14.3 g/dL (12.0-15.0); Lymphocyte # 2.66 X10^3/ul (0.83-4.51); Lymphocyte % 16.2 % (19-41); Mean Corp Hgb Conc 33.3 g/dL (32-36); Mean Corpuscular Hgb 30.3 pg (27.0-32.0); Mean Corpuscular Volume 90.9 fL (81-99); Mean Platelet Vol. 10.1 fl (6.2-12.0); Monocyte# 0.87 X10^3/uL; Monocyte% 5.3 % (0-10); NRBC Flagged by Analyzer 0 % (0-5); Neutrophil # 12.64 X10^3/uL (2.7-7.7); Neutrophil % 76.8 % (47-70); Platelet Count 403 K/mm3 (150-450); RBC Distribution Width CV 12.2 % (11.6-14.6); RBC Distribution Width SD 40.3 fl (35.1-43.9); Red Blood Count 4.72 M/mm3 (4.2-5.4); White Blood Count 16.5 K/mm3 (4.4-11.0)
[2023-09-19 12:48] LABS: ALB/GLOB Ratio 0.9 RATIO (0.9-2.4); AST(SGOT) 14 U/L (15-37); Alanine Aminotransfer ALT/SGPT 19 U/L (13-56); Albumin, Serum 3.5 g/dL (3.2-5.0); Alkaline Phosphatase 72 U/L (45-117); Anion Gap 9 (5-15); BUN 11 mg/dL (7-18); BUN/Creat Ratio 15.2 RATIO (10-20); Calcium,Total 9.1 mg/dL (8.5-10.1); Chloride 103 mmol/L (98-107); Creatinine, Serum 0.72 mg/dL (0.55-1.02); EST Glomerular Filtration Rate 95 mL/min (>60); Est Glom Filt Rate - Afr Amer 115 mL/min (>60); Globulin 3.8 g/dL (2.2-4.2); Glucose 86 mg/dL (74-106); Protein, Total 7.3 g/dL (6.4-8.2); Sodium Level 137 mmol/L (136-145); Thyroid Stim Hormone (TSH) 1.66 uIU/mL (0.358-3.74)
[2023-09-25 04:07] LABS: Alternaria alternata <0.10 kU/L (Class 0); Aspergillus fumigatus <0.10 kU/L (Class 0); Bahia Grass <0.10 kU/L (Class 0); Bermuda Grass <0.10 kU/L (Class 0); Bluegrass, Kentucky <0.10 kU/L (Class 0); Cat Hair/Dander, Standard <0.10 kU/L (Class 0); Cedar, Mountain <0.10 kU/L (Class 0); Cladosporium herbarum <0.10 kU/L (Class 0); Cockroach, American <0.10 kU/L (Class 0); D farinae Mite <0.10 kU/L (Class 0); D pteronyssinus <0.10 kU/L (Class 0); Dog Epithelia <0.10 kU/L (Class 0); Elm, American White <0.10 kU/L (Class 0); Hazelnut Tree <0.10 kU/L (Class 0); Hickory, White <0.10 kU/L (Class 0); Johnson Grass <0.10 kU/L (Class 0); Maple/Box Elder <0.10 kU/L (Class 0); Mucor racemosus <0.10 kU/L (Class 0); Mugwort <0.10 kU/L (Class 0); Mulberry, White <0.10 kU/L (Class 0); Nettle <0.10 kU/L (Class 0); Oak, White <0.10 kU/L (Class 0); Penicillium chrysogen <0.10 kU/L (Class 0); Pigweed, Rough <0.10 kU/L (Class 0); Plantain, English <0.10 kU/L (Class 0); Ragweed, Short/Common <0.10 kU/L (Class 0); Sheep Sorrel(Dock) <0.10 kU/L (Class 0); Stemphylium herbarum <0.10 kU/L (Class 0); Sweet Gum <0.10 kU/L (Class 0); Sycamore, American <0.10 kU/L (Class 0)
== END | disposition home or self-care (01) ==
PROVIDERS: PCP Family Medicine; Referring Provider Family Medicine; Visit Provider Family Medicine
DX: R21 Rash and other nonspecific skin eruption (principal)
CPT/HCPCS: 36415; 80053; 84443; 85025; 85652; 86003

== ENCOUNTER → 2023-10-12 | Outpatient (CLI) | payer BC, SELFPAY | END | disposition home or self-care (01) | PROVIDERS: PCP Family Medicine; Referring Provider Family Medicine; Visit Provider Family Medicine | DX: R21 Rash and other nonspecific skin eruption (principal) | CPT/HCPCS: 86003; 86005 ==

== ENCOUNTER → 2023-11-21 | Outpatient (CLI) | payer OTHER, SELFPAY ==
[2023-11-21 15:07] LABS: Absolute Lymphocyte Count 3.57 X10^3/uL (0.83-4.51); Absolute Neutrophil Count 5.1 X10^3/uL (2.0-7.7); Basophil# 0.01 X10^3/uL; Basophil% 0.1 % (0-1); Eosinophil# 0.25 X10^3/uL; Eosinophils% 2.5 % (0-5); Hematocrit 41.5 % (37-47); Hemoglobin 13.5 g/dL (12.0-15.0); Lymphocyte # 3.57 X10^3/ul (0.83-4.51); Lymphocyte % 36.4 % (19-41); Mean Corp Hgb Conc 32.5 g/dL (32-36); Mean Corpuscular Hgb 29.5 pg (27.0-32.0); Mean Corpuscular Volume 90.8 fL (81-99); Monocyte# 0.84 X10^3/uL; Monocyte% 8.6 % (0-10); NRBC Flagged by Analyzer 0 % (0-5); Neutrophil # 5.08 X10^3/uL (2.7-7.7); Neutrophil % 51.7 % (47-70); Platelet Count 400 K/mm3 (150-450); RBC Distribution Width CV 12.1 % (11.6-14.6); RBC Distribution Width SD 40.1 fl (35.1-43.9); Red Blood Count 4.57 M/mm3 (4.2-5.4); White Blood Count 9.8 K/mm3 (4.4-11.0)
[2023-11-21 15:08] LABS: Erythrocyte Sedimentation Rate 16 mm/hr (0-30)
[2023-11-21 15:21] LABS: Vitamin D,25 Hydroxy 31.7 ng/mL
[2023-11-24 11:09] LABS: Anti-Nuclear Antibody Test Negative (.)
[2023-11-24 22:07] LABS: Thyroid Peroxidase AB 9 IU/mL (0-34)
[2023-11-28 15:56] LABS: AST(SGOT) 21 U/L (15-37); Alanine Aminotransfer ALT/SGPT 23 U/L (13-56); Albumin, Serum 3.4 g/dL (3.2-5.0); Alkaline Phosphatase 72 U/L (45-117); BUN 10 mg/dL (7-18); Bilirubin, Direct 0.09 mg/dL (0.00-0.30); EST Glomerular Filtration Rate 84 mL/min (>60); Est Glom Filt Rate - Afr Amer 102 mL/min (>60); Globulin 3.5 g/dL (2.2-4.2); Glucose 99 mg/dL (74-106); Protein, Total 6.9 g/dL (6.4-8.2); Thyroid Stim Hormone (TSH) 1.44 uIU/mL (0.358-3.74); Uric Acid 3.8 mg/dL (2.6-6.0)
== END | disposition home or self-care (01) ==
PROVIDERS: PCP Family Medicine; Referring Provider Specialist; Visit Provider Specialist
DX: J30.9 Allergic rhinitis, unspecified (principal); L50.1 Idiopathic urticaria; T78.3XXD Angioneurotic edema, subsequent encounter; E55.9 Vitamin D deficiency, unspecified; E07.9 Disorder of thyroid, unspecified
CPT/HCPCS: 36415; 80076; 82306; 82565; 82947; 83520; 84443; 84520; 84550; 85025; 85652; 86038; 86376; 86431

== ENCOUNTER → 2025-05-01 | Outpatient (CLI) | payer OTHER, SELFPAY ==
--- NOTE | 2025-05-01 12:42 | RAD_ITS ---
PROCEDURE: SINUSES MIN 3 VIEWS 05/01/2025 REASON FOR EXAM: PAIN TECHNIQUE: Procedure Code: RADSI Modality: DX Procedure: SINUSES MIN 3 VIEWS COMPARISON: None FINDINGS: The osseous structures are intact. The paranasal sinuses and mastoid air cells are well aerated. RAD/Sinuses min 3 Views IMPRESSION: No significant sinus disease. Reading Location: [facility]
== END | disposition home or self-care (01) ==
PROVIDERS: PCP Family Medicine; Referring Provider Family Medicine; Visit Provider Family Medicine
DX: R51.9 Headache, unspecified (principal)
CPT/HCPCS: 70220